=== PATIENT | male | born 1985 | race Caucasian/White ===

== ENCOUNTER 2024-07-25 10:57 | Inpatient (IN) | payer OTHER, SELFPAY ==
[2024-07-25] VITALS (19 sets, daily range): BP systolic 129–184; BP diastolic 83–129; PULSE 74–113; RESP 15–28; TEMP 36.7–36.8; O2SAT 98–100; BMI 29.9; BMI 30.4
[2024-07-25 11:40] LABS: Bedside Glucose 468 mg/dL (74-106)
--- NOTE | 2024-07-25 11:45 | RAD_ITS ---
PROCEDURE: CHEST PA AND LATERAL REASON FOR EXAM: Shortness of breath. Heart racing. Weight loss. Heartburn. TECHNIQUE: Frontal and lateral views of the chest. COMPARISON: None. FINDINGS: The heart size is normal. The mediastinal contour is unremarkable. No acute consolidation, pleural effusion or pneumothorax. The bones are unremarkable. RAD/Chest PA and Lateral IMPRESSION: No acute consolidation, pleural effusion or pneumothorax. Reading Location: [id number]
--- NOTE | 2024-07-25 11:45 | EKG12_ITS ---
Test Reason : CP Blood Pressure : */* mmHG Vent. Rate : 110 BPM Atrial Rate : 110 BPM P-R Int : 126 ms QRS Dur : 78 ms QT Int : 354 ms P-R-T Axes : 74 10 66 degrees QTcB Int : 479 ms Sinus tachycardia Otherwise normal ECG Confirmed by Johnny Xie ([id number]), technical editor ARNOLDO ARMSTRONG ([id number]) on 07/26/2024 9:33:01 AM Referred By: TB/TA Confirmed By: Johnny Xie
--- NOTE | 2024-07-25 11:49 | EX.ED.DYSGE1 ---
HPI History of Present Illness Chief Complaint: Shortness of Breath Narrative Narrative: Patient is a 39-year-old male with no known significant past medical history who presented to the emergency department chief complaint of not feeling well. Patient states that about a month ago he went to put on a pair of pants and noted that they seem to be not fitting him he states he did use a belt. He states that his symptoms progressively worsened and states that he has had about a 20 pound weight loss he states that he drinks about a gallon of water a day but notes that he is constantly moving around during work on his feet therefore he states that they normally do strength as much by water. He states he does urinate frequently. Patient denies any recent sick illnesses. He states that he did vomit yesterday secondary to acid reflux symptoms. PFSH PFSH Allergy/AdvReac Type Severity Reaction Status Date / Time No Known Allergies Allergy Verified 07/25/24 11:56 Social History Smoking Status: Current every day smoker tobacco type: e-cigarettes ROS ROS ED ROS Narrative Constitutional: Denies fevers, chills, headaches, lightness, dizziness Eyes: Denies change in vision double vision blurry vision Cardiovascular: Complaint of chest pain yesterday and states that this heartburn denies palpitations Respiratory: Denies coughing wheezing shortness of breath Abdomen: Denies abdominal pain nausea vomit diarrhea : Complains urinary symptoms as noted above Neurological: Denies numbness, weakness, tingling Musculoskeletal: Denies back pain Skin: Denies rashes or lesions EXAM Physical Exam Narrative Exam Narrative: General: Patient lying in bed rest comfortably did not appear to be in acute distress Head: Atraumatic, normocephalic Eyes: PERRL bilaterally, EOMI bilaterally, no conjunctival injection noted Neck: Soft, supple, trachea midline Cardiovascular: Regular rate and rhythm no murmurs gallops rubs noted Respiratory: Clear to auscultation bilaterally no rales rhonchi or wheezes noted Abdomen: Soft, nondistended, nontender to palpation, bowel sounds present x 4 extremities: +5/5 strength noted in the bilateral upper and lower extremities, radial pulses +2/4 in the bilateral extremities, no pedal edema no exam Neurological: Patient follow commands and that he was at [facility] years 2024 Skin: Warm, dry, intact no rashes or lesions noted Const Vital Signs: 07/25/24 10:59 07/25/24 11:30 07/25/24 11:59 Temperature 98.2 F Temperature Source Temporal Pulse Rate 113 H 85 Respiratory Rate 16 Respiratory Effort Normal Respiratory Pattern Tachypnea Blood Pressure 169/117 H 167/102 H Blood Pressure Mean 134 123 Pulse Ox 100 100 Oxygen Delivery Method Room Air Room Air 07/25/24 12:00 07/25/24 13:00 07/25/24 14:00 Temperature Temperature Source Pulse Rate 84 84 89 Respiratory Rate 20 H 16 Respiratory Effort Respiratory Pattern Blood Pressure 167/102 H 184/129 H 180/92 H Blood Pressure Mean 123 147 121 Pulse Ox 100 100 98 Oxygen Delivery Method Room Air Room Air 07/25/24 14:00 07/25/24 15:00 Temperature Temperature Source Pulse Rate 80 77 Respiratory Rate 26 H 26 H Respiratory Effort Respiratory Pattern Blood Pressure 180/92 H 147/112 H Blood Pressure Mean 121 123 Pulse Ox 98 100 Oxygen Delivery Method Room Air MDM MDM MDM Narrative Medical decision making narrative: Patient is a 39-year-old male who presented to the emerged part with chief complaint weight loss and not feeling well. On the differential diagnose includes mild to upper respiratory effect secondary viral etiology, pneumonia, ACS, hyperthyroidism. Once workup is obtained reviewed he will be reevaluated. Patient be given IV fluids. Upon arrival here his blood glucose was noted to be elevated to 468 he has no history of diabetes. Patient CBC significant leukocytosis of 15,000, , platelet count noted to be 396. Patient's venous blood gas showed a pH 7.02,, bicarb of 6, sodium was 128 indicating hyponatremia, potassium is normal 4.2,, dioxide 7.2, creatinine elevated 1.7 indicating acute kidney injury. Patient AST and ALT are 22 and 17 respectively, troponin was normal at 11, EKG reviewed and independently interpreted myself showed sinus tachycardia with a rate of 110 bpm. Patient's TSH normal at 2.92, free T4 and T3 were 1 and 1.6 respectively. Patient urinalysis showed no evidence of infection however there 150 ketones. Patient had a large amount of acetone. Patient chest x-ray reviewed by myself by radiology showed no acute consolidation pleural effusion or pneumothorax patient CT ab pelvis with IV contrast pending. Patient was given subcutaneous insulin, Followed by insulin drip, IV fluids. Patient case will be discussed with hospitalist for admission Discussed case with hospitalist Dr. Early who accept patient for admission to the intensive care unit. Patient notified as well as family was bedside all course concerns answered. Lab Data Labs: Laboratory Results - last 24 hr 07/25/24 07/25/24 07/25/24 11:05 11:19 11:52 WBC 15.8 H RBC 5.05 Hgb 15.8 Hct 47.8 MCV 94.7 H MCH 31.3 MCHC 33.1 RDW Std Deviation 45.8 H RDW Coeff of Kelle 13.3 Plt Count 396 MPV 11.0 Immature Gran % (Auto) 0.400 Neut % (Auto) 70.4 H Lymph % (Auto) 10.6 L [place] % (Auto) 8.9 Eos % (Auto) 9.4 H Baso % (Auto) 0.3 Absolute Neuts (auto) 11.2 H Absolute Lymphs (auto) 1.67 Nucleated RBC % 0 Sodium 128 L Potassium 4.2 Chloride Direct 94 L Carbon Dioxide 7.2 L* Anion Gap 27 H BUN 15 Creatinine 1.7 H Estim Creat Clear Calc 72.92 Est GFR (MDRD) Non-Af 53 L BUN/Creatinine Ratio 9.2 L Glucose 416 H Hemoglobin A1c 13.3 Calcium 10.0 Total Bilirubin 0.44 AST 22 ALT 17 Alkaline Phosphatase 96 Troponin T High Sens 10 Troponin T Hi Sens 2 Hr Troponin T Hi Sens 2Hr Delta Total Protein 7.9 Albumin 4.8 Globulin 3.1 Albumin/Globulin Ratio 1.5 Lipase 83 H TSH 2.920 Free T4 1.00 Free T3 pg/dL 1.6 L Urine Color Urine Clarity Urine pH Ur Specific [place] Urine Protein Urine Glucose (UA) Urine Ketones Urine Occult Blood Urine Nitrite Urine Bilirubin Urine Urobilinogen Ur Leukocyte Esterase Urine RBC Urine WBC Ur Squamous Epith Cells Urine Bacteria Fine Granular Casts Coarse Granular Casts Urine Mucus Acetone Level LARGE H POC Glucose 468 H* 07/25/24 07/25/24 07/25/24 13:40 14:00 14:50 WBC RBC Hgb Hct MCV MCH MCHC RDW Std Deviation RDW Coeff of Kelle Plt Count MPV Immature Gran % (Auto) Neut % (Auto) Lymph % (Auto) Starr % (Auto) Eos % (Auto) Baso % (Auto) Absolute Neuts (auto) Absolute Lymphs (auto) Nucleated RBC % Sodium Potassium Chloride Direct Carbon Dioxide Anion Gap BUN Creatinine Estim Creat Clear Calc Est GFR (MDRD) Non-Af BUN/Creatinine Ratio Glucose Hemoglobin A1c Calcium Total Bilirubin AST ALT Alkaline Phosphatase Troponin T High Sens Troponin T Hi Sens 2 Hr 11 Troponin T Hi Sens 2Hr Delta 2 Total Protein Albumin Globulin Albumin/Globulin Ratio Lipase TSH Free T4 Free T3 pg/dL Urine Color Straw Urine Clarity Clear Urine pH 6.0 Ur Specific [place] 1.020 Urine Protein 100 H Urine Glucose (UA) 1000 H Urine Ketones 150 A* Urine Occult Blood 150 H Urine Nitrite Negative Urine Bilirubin Negative Urine Urobilinogen Normal Ur Leukocyte Esterase Negative Urine RBC 0-5 SEEN Urine WBC 0-5 SEEN Ur Squamous Epith Cells 0-5 SEEN Urine Bacteria 0 SEEN Fine Granular Casts 0-5 SEEN Coarse Granular Casts 10-25 SEEN Urine Mucus 1+ Acetone Level POC Glucose 324 H ABG Data ABG results: ABG 07/25/24 12:48 Specimen Type ALONZO Sample Site Not entered VBG pH 7.02 L* VBG pO2 34 VBG HCO3 6 L VBG Total CO2 7 L VBG O2 Sat (Calc) 42 L VBG Base Excess -25 L POC Mix VBG pCO2 Pt Tmp 24.5 L O2 Delivery Device Not entered Crit Call To/Read Back Yes Blood Gas Notified Whom Dr Hussein Blood Gas Notified Time 12:51:03 Radiography Diagnostic Testing: Clinical Impression(s) from Imaging Studies Chest X-Ray 07/25/24 11:45 IMPRESSION: No acute consolidation, pleural effusion or pneumothorax. Reading Location: [facility] Discharge Plan Triage Chief Complaint: Shortness of Breath ED Provider: Frank Hussein Dx/Rx/DC Orders Clinical Impression: Diabetes mellitus, new onset, Metabolic acidosis, Abnormal weight loss Primary Care Provider: Care Physician,No Primary Referrals: NOT,DEFINED [Non-Staff] - Print Language: Trinidadian Disposition Disposition: [facility]
[2024-07-25] MEDS: 0.9% Normal Saline (1000mL) 1,000 ML 999 ML IV ×3 (11:52→17:12)
[2024-07-25 12:02] LABS: Absolute Lymphocyte Count 1.67 X10^3/uL (0.83-4.51); Absolute Neutrophil Count 11.2 X10^3/uL (2.0-7.7); Basophil# 0.05 X10^3/uL; Basophil% 0.3 % (0-1); Eosinophil# 1.48 X10^3/uL; Eosinophils% 9.4 % (0-5); Hematocrit 47.8 % (40-54); Hemoglobin 15.8 g/dL (13.0-16.5); Lymphocyte # 1.67 X10^3/ul (0.83-4.51); Lymphocyte % 10.6 % (19-41); Mean Corp Hgb Conc 33.1 g/dL (32-36); Mean Corpuscular Hgb 31.3 pg (27.0-32.0); Mean Corpuscular Volume 94.7 fL (80-94); Monocyte# 1.41 X10^3/uL; Monocyte% 8.9 % (0-10); NRBC Flagged by Analyzer 0 % (0-5); Neutrophil # 11.15 X10^3/uL (2.7-7.7); Neutrophil % 70.4 % (47-70); POSITIVE MORPHOLOGY YES; Platelet Count 396 K/mm3 (150-450); RBC Distribution Width CV 13.3 % (11.6-14.6); RBC Distribution Width SD 45.8 fl (35.1-43.9); Red Blood Count 5.05 M/mm3 (4.6-6.2); White Blood Count 15.8 K/mm3 (4.4-11.0)
[2024-07-25 12:37] LABS: Hemoglobin A1c 13.3 % (<=5.6)
[2024-07-25 12:42] LABS: Differential Indicated SCAN CRITERIA MET
[2024-07-25 12:44] LABS: ALB/GLOB Ratio 1.5 RATIO (0.9-2.4); AST(SGOT) 22 U/L (<=37); Alanine Aminotransfer ALT/SGPT 17 U/L (<=46); Albumin, Serum 4.8 g/dL (3.5-5.0); Alkaline Phosphatase 96 U/L (40-129); Anion Gap 27 (5-15); BUN 15 mg/dL (4-19); BUN/Creat Ratio 9.2 RATIO (10-20); Carbon Dioxide 7.2 mmol/L (22.0-29.0); Chloride 94 mmol/L (96-108); Creatinine, Serum 1.7 mg/dL (0.8-1.3); EST Glomerular Filtration Rate 53 (>60); Estimated Creatinine Clearance 72.92 ml/min; Globulin 3.1 g/dL (2.2-4.2); Glucose 416 mg/dL (70-99); Lipase 83 U/L (13-75); Potassium 4.2 mmol/L (3.3-5.1); Protein, Total 7.9 g/dL (5.9-8.4); Sodium Level 128 mmol/L (133-145); Total Bilirubin 0.44 mg/dL (0.00-1.30)
--- NOTE | 2024-07-25 12:45 | ED.RN ---
bicarb 7.2. dr vang
[2024-07-25 12:53] LABS: Blood Gas Specimen Type VEN; O2 Delivery Device Not entered; SITE Not entered; VBG BASE EXCESS -25 mmol/L (-1.0-3.5); VBG Bicarbonate 6 mmol/L (22-26); VBG PO2 34 mmHg (25-40); VBG SO2 42 % (50-70); VBG TCO2 7 mmol/L (23-33); VBG pCO2 24.5 mmHg (41-51); VBG pH 7.02 (7.32-7.42)
[2024-07-25 13:06] LABS: Free T3 1.6 pg/mL (2.18-3.98); Troponin T High Sensitivity 10 ng/L (<=22)
--- NOTE | 2024-07-25 13:15 | CT_ITS ---
PROCEDURE: CT ABDOMEN AND PELVIS WITH INTRAVENOUS CONTRAST REASON FOR EXAM: NEW ONSET DIABETIC. SHORTNESS OF BREATH. 20 LB WEIGHT LOSS TECHNIQUE: Contiguous axial scans of 3.75 mm slice thicknesses. Sagittal and coronal reconstruction images were obtained. One or more dose reduction techniques were used (e.g., automated exposure control, adjustment of mA and/or kv according to patient size, use of iterative reconstruction technique). IV CONTRAST: Isovue-300, 100 mL. COMPARISON: No relevant prior. FINDINGS: Lung bases: Clear Liver: Normal in size. Small subcentimeter hypodensities are scattered throughout the liver. Gallbladder: Unremarkable. Spleen: Unremarkable. A small splenule on axial image 32. Pancreas: Unremarkable. Adrenals: Unremarkable. Kidneys: Unremarkable. Bladder: Marked distention. Reproductive Organs: Unremarkable. Bowel: Unremarkable. Appendix: Normal. Lymph nodes: No suspicious lymph node enlargement. Vasculature: Major vascular structures are unremarkable. Peritoneum / Retroperitoneum: No ascites. No free air. Bones: Unremarkable. CT/Abdomen/Pelvis W IV Cont ONLY IMPRESSION: 1. Small subcentimeter hypodensities scattered throughout the liver, most like ly cysts or hemangiomas. 2. Markedly distended urinary bladder. Reading Location: [place] [id number]
[2024-07-25 13:46] LABS: Bacteria 0 SEEN /hpf (None Seen)
[2024-07-25 13:49] LABS: Color, Urine Straw (Yellow); Glucose, Dipstick 1000 mg/dl (Normal); Leukocyte Esterase-Dipstick Negative /ul (Negative); Nitrite-Dipstick Negative (Negative); Occult Blood-Urine 150 /ul (Negative); Protein-Dipstick 100 mg/dl (Negative); Urine Bilirubin Dipstick Negative (Negative); Urine Clarity Clear (Clear); Urine Urobilinogen Normal (Normal)
[2024-07-25 13:53] LABS: Ketone-Dipstick 150 mg/dl (Negative)
[2024-07-25] MEDS: Insulin Lispro 100 UNIT in 0.9% Normal Saline (100mL Bag) 99 ML 10 UNIT CONT INF (13:53)
[2024-07-25] MEDS: Insulin Lispro 100 UNIT/ML INSULN.PEN 15 UNIT SC (13:53)
[2024-07-25 14:09] LABS: Mucous, Urine 1+ /hpf (<or=2+); Red Blood Cells-Urine 0-5 SEEN /hpf (0-5); Squamous Epithelial Cells - UA 0-5 SEEN /hpf (0-5); White Blood Cells 0-5 SEEN /hpf (0-5)
[2024-07-25 14:10] LABS: Coarse Granular Cast 10-25 SEEN /lpf (0-5 /lpf); Fine Granular Cast- Urine 0-5 SEEN /lpf (0-5)
[2024-07-25 14:38] LABS: TROPONIN VARIANCE 2 HR 2; Troponin T High Sens 2 HR 11 ng/L (<=22)
[2024-07-25 15:09] LABS: Bedside Glucose 324 mg/dL (74-106)
--- NOTE | 2024-07-25 16:08 | HP.PCM.HOS_ITS ---
HPI - General General Date of Admission: 07/25/24 Date of Service: 07/25/24 Chief Complaint: fatigue. HPI Narrative STELLA SIMPSON, is a 39 M who presents with progressive fatigue and weight loss. The patient is feeling dehydrated. 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 Patient was found to be in DKA with a venous blood gas with a pH of 7.02 and a sodium 128, carbon dioxide of 7.2 and creatinine 1.7. Patient has no prior history of diabetes. Patient received IV fluids as well as insulin in the emergency room. Glucose went from 468-324. [facility] Allergy/AdvReac Type Severity Reaction Status Date / Time No Known Allergies Allergy Verified 07/25/24 11:56 Family History (Updated 07/25/24 @ 16:[address] Jeromy Early DO) Father Diabetes Social History Smoking Status: Current every day smoker tobacco type: e-cigarettes ROS ROS Narrative Positive nausea no vomiting. Does not note polydipsia as he states that he normally drinks a lot of fluid at the restaurant and denies polyuria but does feel dehydrated. All review of systems were negative except as mentioned above in the history of present illness and the other review of systems. Vital Signs Vital Signs Vital Signs: 07/25/24 10:59 07/25/24 11:30 07/25/24 11:59 Temperature 36.8 C Temperature Source Temporal Pulse Rate 113 H 85 Respiratory Rate 16 Respiratory Effort Normal Respiratory Pattern Tachypnea Blood Pressure 169/117 H 167/102 H Blood Pressure Mean 134 123 Pulse Ox 100 100 Oxygen Delivery Method Room Air Room Air 07/25/24 12:00 07/25/24 13:00 07/25/24 14:00 Temperature Temperature Source Pulse Rate 84 84 89 Respiratory Rate 20 H 16 Respiratory Effort Respiratory Pattern Blood Pressure 167/102 H 184/129 H 180/92 H Blood Pressure Mean 123 147 121 Pulse Ox 100 100 98 Oxygen Delivery Method Room Air Room Air 07/25/24 14:00 07/25/24 15:00 Temperature Temperature Source Pulse Rate 80 77 Respiratory Rate 26 H 26 H Respiratory Effort Respiratory Pattern Blood Pressure 180/92 H 147/112 H Blood Pressure Mean 121 123 Pulse Ox 98 100 Oxygen Delivery Method Room Air Weight Weight: 100.244 kg Body Mass Index (BMI) 29.9 Physical Exam Const alert and no apparent distress HEENT normocephalic, head/scalp atraumatic, hearing grossly normal bilaterally and moist oral mucous membranes Mouth: moist mucous membranes abnormal parched Eyes Eyes Narrative: No icterus. Neck no lymphadenopathy Resp normal respiratory effort, no retractions, no use of accessory muscles and clear to auscultation bilaterally Cardio regular rate, regular rhythm, S1 normal heart sound and S2 normal heart sound GI normal to inspection, nondistended, normoactive bowel sounds, soft to palpation, non-tender and non-distended Extremity normal to inspection and full ROM Neuro moves all extremities and no focal motor deficits Sensorium / Orientation: awake and alert Psych affect normal Results Lab / Micro Data Attestation: I reviewed the patient's lab results. 07/25/24 11:05 07/25/24 11:05 Labs: Laboratory Results - last 24 hr 07/25/24 11:05: WBC 15.8 H, RBC 5.05, Hgb 15.8, Hct 47.8, MCV 94.7 H, MCH 31.3, MCHC 33.1, RDW Std Deviation 45.8 H, RDW Coeff of Kelle 13.3, Plt Count 396, MPV 11.0, Immature Gran % (Auto) 0.400, Neut % (Auto) 70.4 H, Lymph % (Auto) 10.6 L, [place] % (Auto) 8.9, Eos % (Auto) 9.4 H, Baso % (Auto) 0.3, Absolute Neuts (auto) 11.2 H, Absolute Lymphs (auto) 1.67, Nucleated RBC % 0, Sodium 128 L, Potassium 4.2, Chloride Direct 94 L, Carbon Dioxide 7.2 L*, Anion Gap 27 H, BUN 15, C reatinine 1.7 H, Estim Creat Clear Calc 72.92, Est GFR (MDRD) Non-Af 53 L, B UN/Creatinine Ratio 9.2 L, Glucose 416 H, Hemoglobin A1c 13.3, Calcium 10.0, Total Bilirubin 0.44, AST 22, ALT 17, Alkaline Phosphatase 96, Troponin T High Sens 10, Total Protein 7.9, Albumin 4.8, Globulin 3.1, Albumin/Globulin Ratio 1.5, Lipase 83 H, TSH 2.920, Free T4 1.00, Free T3 pg/dL 1.6 L 07/25/24 11:19: POC Glucose 468 H* 07/25/24 11:52: Acetone Level LARGE H 07/25/24 13:40: Urine Color Straw, Urine Clarity Clear, Urine pH 6.0, Ur Specific [place] 1.020, Urine Protein 100 H, Urine Glucose (UA) 1000 H, Urine Ketones 150 A*, Urine Occult Blood 150 H, Urine Nitrite Negative, Urine Bilirubin Negative, Urine Urobilinogen Normal, Ur Leukocyte Esterase Negative, Urine RBC 0-5 SEEN, Urine WBC 0-5 SEEN, Ur Squamous Epith Cells 0-5 SEEN, Urine Bacteria 0 SEEN, Fine Granular Casts 0-5 SEEN, Coarse Granular Casts 10-25 SEEN, Urine Mucus 1+ 07/25/24 14:00: Troponin T Hi Sens 2 Hr 11, Troponin T Hi Sens 2Hr Delta 2 07/25/24 14:50: POC Glucose 324 H ABG Data ABG results: ABG 07/25/24 12:48 Specimen Type ALONZO Sample Site Not entered VBG pH 7.02 L* VBG pO2 34 VBG HCO3 6 L VBG Total CO2 7 L VBG O2 Sat (Calc) 42 L VBG Base Excess -25 L POC Mix VBG pCO2 Pt Tmp 24.5 L O2 Delivery Device Not entered Crit Call To/Read Back Yes Blood Gas Notified Whom Dr Hussein Blood Gas Notified Time 12:51:03 Imaging Radiology Impression Chest X-Ray 07/25/24 11:45 IMPRESSION: No acute consolidation, pleural effusion or pneumothorax. Reading Location: [id number] Abdomen/Pelvis CT 07/25/24 13:15 IMPRESSION: 1. Small subcentimeter hypodensities scattered throughout the liver, most likely cysts or hemangiomas. 2. Markedly distended urinary bladder. Reading Location: [place] [address] Assessment & Plan Assessment/Plan (1) DKA (diabetic ketoacidoses): PLAN: Unclear if patient is type I or type II Patient will be on insulin drip protocol. IV fluids. Told patient that he would likely be discharged with insulin. I strongly recommend they follow-up with endocrinology to further tease out whether or not he is a type I versus type II diabetic. Patient's father is a type II diabetic. I told the patient that I cannot determine if he is a type II at this point in time (2) EMILY (acute kidney injury): PLAN: Provide secondary to dehydration. Patient clinically looks dry. IV fluids and reevaluate. (3) Hyponatremia: PLAN: Likely pseudohyponatremia secondary to hyperglycemia. Monitor. PLAN: Plan VTE prophylaxis with enoxaparin. Charges/Coding Visit Charges Inpatient E&M: 87204 Init Hosp L3
[2024-07-25 16:42] LABS: Bedside Glucose 271 mg/dL (74-106)
[2024-07-25 17:42] LABS: Bedside Glucose 226 mg/dL (74-106)
[2024-07-25 18:08] LABS: Anion Gap 18 (5-15); BUN 15 mg/dL (4-19); BUN/Creat Ratio 10.7 RATIO (10-20); Calcium 9.4 mg/dL (7.6-11.0); Carbon Dioxide 10.8 mmol/L (22.0-29.0); Chloride 102 mmol/L (96-108); Creatinine, Serum 1.4 mg/dL (0.8-1.3); EST Glomerular Filtration Rate 65 (>60); Estimated Creatinine Clearance 89.23 ml/min; Glucose 214 mg/dL (70-99); Potassium 3.3 mmol/L (3.3-5.1); Sodium Level 131 mmol/L (133-145)
[2024-07-25] MEDS: 0.9% Normal Saline (1000mL) 1,000 ML 500 ML IV (18:16)
[2024-07-25 18:40] LABS: Bedside Glucose 182 mg/dL (74-106)
[2024-07-25] MEDS: Dext 5%-0.45% NS 1,000 ML 150 ML IV (19:30)
[2024-07-25 21:08] LABS: Anion Gap 16 (5-15); BUN 14 mg/dL (4-19); BUN/Creat Ratio 9.9 RATIO (10-20); Calcium 8.7 mg/dL (7.6-11.0); Carbon Dioxide 11.5 mmol/L (22.0-29.0); Chloride 106 mmol/L (96-108); Creatinine, Serum 1.4 mg/dL (0.8-1.3); EST Glomerular Filtration Rate 66 (>60); Estimated Creatinine Clearance 89.23 ml/min; Glucose 177 mg/dL (70-99); Sodium Level 133 mmol/L (133-145)
[2024-07-25 21:51] LABS: Phosphorus 1.9 mg/dL (2.7-4.5)
[2024-07-25] MEDS: Potassium Chloride 10mEq/100mL 10 MEQ/100 ML IV.SOLN. 100 MEQ IV BOLUS ×2 (22:14→23:14)
[2024-07-25] MEDS: 0.9% Saline Lock 10 ML Syringe IV (22:14)
[2024-07-26] VITALS (16 sets, daily range): BP systolic 133–161; BP diastolic 77–95; PULSE 69–89; RESP 16–28; TEMP 36.6–36.7; O2SAT 97–99
[2024-07-26] MEDS: Sodium Phosphate/Na Biphos 15 MMOL in 0.9% Normal Saline (250mL Bag) 250 ML 125 MMOL IV (00:06)
[2024-07-26 00:39] LABS: Anion Gap 13 (5-15); BUN 14 mg/dL (4-19); Calcium 8.8 mg/dL (7.6-11.0); Carbon Dioxide 11.8 mmol/L (22.0-29.0); Chloride 107 mmol/L (96-108); Creatinine, Serum 1.2 mg/dL (0.8-1.3); EST Glomerular Filtration Rate 77 (>60); Glucose 180 mg/dL (70-99); Potassium 3.1 mmol/L (3.3-5.1); Sodium Level 131 mmol/L (133-145)
[2024-07-26] MEDS: Dext 5%-0.45% NS 1,000 ML 150 ML IV (02:23)
[2024-07-26 02:29] LABS: Bedside Glucose 171 mg/dL (74-106)
[2024-07-26 02:29] LABS: Bedside Glucose 177 mg/dL (74-106)
[2024-07-26 02:29] LABS: Bedside Glucose 166 mg/dL (74-106)
[2024-07-26 02:29] LABS: Bedside Glucose 175 mg/dL (74-106)
[2024-07-26 05:13] LABS: Anion Gap 12 (5-15); BUN 14 mg/dL (4-19); BUN/Creat Ratio 12.1 RATIO (10-20); Calcium 8.8 mg/dL (7.6-11.0); Carbon Dioxide 12.5 mmol/L (22.0-29.0); Chloride 107 mmol/L (96-108); Creatinine, Serum 1.2 mg/dL (0.8-1.3); EST Glomerular Filtration Rate 83 (>60); Glucose 170 mg/dL (70-99); Potassium 2.7 mmol/L (3.3-5.1); Sodium Level 131 mmol/L (133-145)
[2024-07-26] MEDS: Potassium Chloride 10mEq/100mL 10 MEQ/100 ML IV.SOLN. 100 MEQ IV BOLUS ×4 (06:06→09:20)
[2024-07-26] MEDS: 0.9% Saline Lock 10 ML Syringe IV ×3 (06:08→16:39)
[2024-07-26] MEDS: Insulin Glargine-YFGN 100 UNIT/ML Pen 20 UNIT SC ×2 (06:46→21:06)
[2024-07-26 07:09] LABS: Bedside Glucose 162 mg/dL (74-106)
[2024-07-26 07:09] LABS: Bedside Glucose 170 mg/dL (74-106)
[2024-07-26 07:09] LABS: Bedside Glucose 180 mg/dL (74-106)
[2024-07-26 07:09] LABS: Bedside Glucose 149 mg/dL (74-106)
[2024-07-26 07:09] LABS: Bedside Glucose 157 mg/dL (74-106)
--- NOTE | 2024-07-26 07:45 | PN.HOSP_ITS ---
Reason for Visit Reason for Visit: Fatigue Subjective Subjective Patient states he overall is feeling much better today. We discussed DKA and type I and type 2 diabetes. He does have a family history of diabetes but no personal history of diabetes and has never been on any type of diabetic medication. We did discuss with the severity of his hyperglycemia that he would indeed require insulin at discharge and follow-up with endocrinology. Patient voiced understanding. Objective Data Objective Data Vital Signs: Vital Signs Temp Pulse Resp BP Pulse Ox O2 Del Method 97.8 F 77 25 H 146/81 H 99 Room Air 07/26/24 04:00 07/26/24 06:00 07/26/24 06:00 07/26/24 06:00 07/26/24 06:00 07/26/24 06:00 Oxygen Delivery Method Room Air Weight: 101.9 kg Body Mass Index (BMI) 30.4 Intake & Output: Intake and Output for Last 24 Hours 07/24/24 07/25/24 07/26/24 23:59 23:59 23:59 Intake Total 3764.18 / 3764.18 1493 / 1493 Balance 3764.18 / 3764.18 1493 / 1493 Lab / Micro Data 07/25/24 11:05 07/26/24 16:05 Labs: Laboratory Results - last 24 hr 07/25/24 11:05: WBC 15.8 H, RBC 5.05, Hgb 15.8, Hct 47.8, MCV 94.7 H, MCH 31.3, MCHC 33.1, RDW Std Deviation 45.8 H, RDW Coeff of Kelle 13.3, Plt Count 396, MPV 11.0, Immature Gran % (Auto) 0.400, Neut % (Auto) 70.4 H, Lymph % (Auto) 10.6 L, [place] % (Auto) 8.9, Eos % (Auto) 9.4 H, Baso % (Auto) 0.3, Absolute Neuts (auto) 11.2 H, Absolute Lymphs (auto) 1.67, Nucleated RBC % 0, Sodium 128 L, Potassium 4.2, Chloride Direct 94 L, Carbon Dioxide 7.2 L*, Anion Gap 27 H, BUN 15, C reatinine 1.7 H, Estim Creat Clear Calc 72.92, Est GFR (MDRD) Non-Af 53 L, B UN/Creatinine Ratio 9.2 L, Glucose 416 H, Hemoglobin A1c 13.3, Calcium 10.0, Total Bilirubin 0.44, AST 22, ALT 17, Alkaline Phosphatase 96, Troponin T High Sens 10, Total Protein 7.9, Albumin 4.8, Globulin 3.1, Albumin/Globulin Ratio 1.5, Lipase 83 H, TSH 2.920, Free T4 1.00, Free T3 pg/dL 1.6 L 07/25/24 11:19: POC Glucose 468 H* 07/25/24 11:52: Acetone Level LARGE H 07/25/24 13:40: Urine Color Straw, Urine Clarity Clear, Urine pH 6.0, Ur Specific [place] 1.020, Urine Protein 100 H, Urine Glucose (UA) 1000 H, Urine Ketones 150 A*, Urine Occult Blood 150 H, Urine Nitrite Negative, Urine Bilirubin Negative, Urine Urobilinogen Normal, Ur Leukocyte Esterase Negative, Urine RBC 0-5 SEEN, Urine WBC 0-5 SEEN, Ur Squamous Epith Cells 0-5 SEEN, Urine Bacteria 0 SEEN, Fine Granular Casts 0-5 SEEN, Coarse Granular Casts 10-25 SEEN, Urine Mucus 1+ 07/25/24 14:00: Troponin T Hi Sens 2 Hr 11, Troponin T Hi Sens 2Hr Delta 2 07/25/24 14:50: POC Glucose 324 H 07/25/24 16:20: POC Glucose 271 H 07/25/24 17:15: Sodium 131 L, Potassium 3.3, Chloride Direct 102, Carbon Dioxide 10.8 L, Anion Gap 18 H, BUN 15, Creatinine 1.4 H, Estim Creat Clear Calc 89.23, Est GFR (MDRD) Non-Af 65, BUN/Creatinine Ratio 10.7, Glucose 214 H, Calcium 9.4 07/25/24 17:23: POC Glucose 226 H 07/25/24 18:18: POC Glucose 182 H 07/25/24 20:05: POC Glucose 166 H 07/25/24 20:11: Sodium 133, Potassium 3.0 L, Chloride Direct 106, Carbon Dioxide 11.5 L, Anion Gap 16 H, BUN 14, Creatinine 1.4 H, Estim Creat Clear Calc 89.23, Est GFR (MDRD) Non-Af 66, BUN/Creatinine Ratio 9.9 L, Glucose 177 H, Calcium 8.7, Phosphorus 1.9 L 07/25/24 21:01: POC Glucose 177 H 07/25/24 22:08: POC Glucose 175 H 07/25/24 22:59: POC Glucose 171 H 07/26/24 00:04: Sodium 131 L, Potassium 3.1 L, Chloride Direct 107, Carbon Dioxide 11.8 L, Anion Gap 13, BUN 14, Creatinine 1.2, Estim Creat Clear Calc 104.10, Est GFR (MDRD) Non-Af 77, BUN/Creatinine Ratio 11.0, Glucose 180 H, Calcium 8.8 07/26/24 01:02: POC Glucose 162 H 07/26/24 03:03: POC Glucose 180 H 07/26/24 04:08: POC Glucose 170 H 07/26/24 04:11: Sodium 131 L, Potassium 2.7 L*, Chloride Direct 107, Carbon Dioxide 12.5 L, Anion Gap 12, BUN 14, Creatinine 1.2, Estim Creat Clear Calc 104.10, Est GFR (MDRD) Non-Af 83, BUN/Creatinine Ratio 12.1, Glucose 170 H, Calcium 8.8 07/26/24 05:24: Acetone Level NEGATIVE 07/26/24 06:10: POC Glucose 157 H 07/26/24 06:51: POC Glucose 149 H ABG Data ABG results: ABG 07/25/24 12:48 Specimen Type ALONZO Sample Site Not entered VBG pH 7.02 L* VBG pO2 34 VBG HCO3 6 L VBG Total CO2 7 L VBG O2 Sat (Calc) 42 L VBG Base Excess -25 L POC Mix VBG pCO2 Pt Tmp 24.5 L O2 Delivery Device Not entered Crit Call To/Read Back Yes Blood Gas Notified Whom Dr Hussein Blood Gas Notified Time 12:51:03 Radiography Diagnostic Testing: Radiology Impression Chest X-Ray 07/25/24 11:45 IMPRESSION: No acute consolidation, pleural effusion or pneumothorax. Reading Location: [id number] Abdomen/Pelvis CT 07/25/24 13:15 IMPRESSION: 1. Small subcentimeter hypodensities scattered throughout the liver, most likely cysts or hemangiomas. 2. Markedly distended urinary bladder. Reading Location: [place] [address] Physical Exam Const alert, oriented x3, no apparent distress and well nourished; Negative for average body habitus Constitutional Narrative: Obese, middle-aged, white male, sitting up in bed, appears comfortable, nontoxic, watching television HEENT head/scalp atraumatic and moist oral mucous membranes HEENT Narrative: Mallampati 2-3, no thrush Head and Scalp: normocephalic Resp normal respiratory effort, no retractions, no use of accessory muscles and clear to auscultation bilaterally Auscultation: Negative for rales, rhonchi or wheezes Cardio regular rate, regular rhythm, S1 normal heart sound, S2 normal heart sound, no murmurs, no rub, no gallops and no clicks GI normal to inspection, nondistended, normoactive bowel sounds, soft to palpation and non-tender Extremity no clubbing, cyanosis or edema Neuro oriented x3, moves all extremities and no focal motor deficits Speech: speech normal Psych affect normal Psych Narrative: Pleasant, interacts appropriately Assessment & Plan Assessment/Plan (1) Hyponatremia: (2) EMILY (acute kidney injury): (3) DKA (diabetic ketoacidoses): (4) Diabetes mellitus, new onset: (5) HTN (hypertension): (6) Hypokalemia: (7) Dehydration: PLAN: Plan DKA -Resolved EMILY -Baseline serum creatinine is 1.2 -Serum creatinine on presentation was 1.7 -Improved with hydration -Repeat lab in a.m. Hypokalemia -Will give 60 mg once a p.o. potassium replacement and recheck lab New onset DM -Unclear if type I or type II -Would be odd for type II to present in DKA -Will need further workup by endocrinology to determine type -Refer to Dr. Felix from endocrinology at discharge -Start subcu insulin and based on blood sugars will uptitrate to 40 units daily -Increase prandial insulin to 12 units 3 times daily -Continue SSI -Diabetic teaching from dietitian -Insulin teaching from nursing Hypertension -Blood pressure has consistently been elevated -Lisinopril 10 mg added but blood pressure still elevated so we will uptitrate the 30 mg Hyponatremia -Some of this is pseudohyponatremia -Repeat lab in a.m. Obesity -BMI 30.4 -Recommend weight loss -If and complicates treatment, prognosis, outcomes DVT prophylaxis -Continue enoxaparin subcu 40 mg daily CODE STATUS Full code Charges/Coding Visit Charges Inpatient E&M: 53081 Subs Hosp L2
[2024-07-26] MEDS: Potassium Chloride Oral Tablet 20 MEQ 60 MEQ PO (07:56)
[2024-07-26] MEDS: Insulin Lispro 100 UNIT/ML INSULN.PEN 8 UNIT SC ×2 (08:22→11:58)
[2024-07-26] MEDS: Insulin Lispro 100 UNIT/ML INSULN.PEN SC ×4 (08:22→21:04)
[2024-07-26 08:36] LABS: Bedside Glucose 164 mg/dL (74-106)
[2024-07-26 09:20] LABS: BUN 14 mg/dL (4-19); BUN/Creat Ratio 11.8 RATIO (10-20); Creatinine, Serum 1.2 mg/dL (0.8-1.3); EST Glomerular Filtration Rate 84 (>60); Glucose 141 mg/dL (70-99)
[2024-07-26 09:56] LABS: Anion Gap 11 (5-15); Carbon Dioxide 13.9 mmol/L (22.0-29.0); Chloride 107 mmol/L (96-108); Potassium 2.8 mmol/L (3.3-5.1); Sodium Level 132 mmol/L (133-145)
[2024-07-26] MEDS: Lisinopril 10 MG Tablet PO (10:12)
[2024-07-26] MEDS: Enoxaparin 40 MG/0.4 ML Syringe SC (10:13)
[2024-07-26] MEDS: Lactated Ringers 1,000 ML 200 ML IV (10:19)
[2024-07-26] MEDS: Polyethylene Glycol 3350 17 GM PACKET PO (10:23)
--- NOTE | 2024-07-26 11:00 | CASEMGMT ---
Addendum entered by Renetta Jay 07/26/24 13:24: Discussed CCN, pt declines referral at this time, stating he works 6 days/week, often 14-hr days, and is rarely home. Original Note: RN CM PRESS OPERATOR CM?to room to meet with patient for initial transition planning/care coordination assessment. RN CM?introduced self and role at [facility]. Pt voices understanding and consents to assessment?at this time. Pt resting in bed in no distress at this time. @ bedside. Pt is A/O at this time and answers all questions appropriately. Care providers, pharmacy, and demographics verified/updated at this time. Strata:?1 PCP: No PCP. Provided w/local PCP directory. Recommended to get coleman w/PCP to get established as soon as possible. Specialists: none Preferred [facility]acy: [facility] Insurance: MMO Prescription Benefit: Pt is not sure Living Will/HPOA: Pt does not currently have LW/HCPOA. Pt made aware if interested in completed, these can be done w/SW while in the hospital, if SW is available. Also made aware that he can contact SW as an out-pt and make appt in the future if he decides he would like to talk with someone about this or would like to utilize [facility] social work for advanced directive completion. LNOK: Mini Living Arrangements: Lives w/. Independent. 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 Transportation:?Pt states drives self and states no transportation concerns at this time. also drives. DME: Denies using any DME. Does not have a glucometer. Made aware a script will be provided @ discharge and can take to any pharmacy of choice. HHC/SNF: No hx. No needs identified. Pt wishes to return home and states has no concerns with going home at time of discharge. CM?to follow for any further discharge planning/needs. Pt and voice no further concerns/needs at this time. PLAN: Home. Pt to be provided w/script for glucometer. Nursing to educate on DM and insulin admin. Ivan DOSS RN, CM
[2024-07-26 12:08] LABS: Bedside Glucose 312 mg/dL (74-106)
[2024-07-26 16:36] LABS: Anion Gap 10 (5-15); BUN 15 mg/dL (4-19); BUN/Creat Ratio 11.4 RATIO (10-20); Calcium 9.1 mg/dL (7.6-11.0); Carbon Dioxide 15.4 mmol/L (22.0-29.0); Chloride 104 mmol/L (96-108); Creatinine, Serum 1.3 mg/dL (0.8-1.3); EST Glomerular Filtration Rate 73 (>60); Estimated Creatinine Clearance 96.09 ml/min; Glucose 437 mg/dL (70-99); Potassium 3.4 mmol/L (3.3-5.1); Sodium Level 130 mmol/L (133-145)
[2024-07-26] MEDS: Insulin Lispro 100 UNIT/ML INSULN.PEN 12 UNIT SC (16:39)
[2024-07-26 16:44] LABS: Bedside Glucose 361 mg/dL (74-106)
[2024-07-26 21:35] LABS: Bedside Glucose 319 mg/dL (74-106)
[2024-07-27 04:55] VITALS: BP 139/86; PULSE 65; RESP 18; TEMP 36.6; O2SAT 100
[2024-07-27 05:16] VITALS: BMI 30.5
[2024-07-27 05:32] LABS: ALB/GLOB Ratio 1.5 RATIO (0.9-2.4); AST(SGOT) 14 U/L (<=37); Alanine Aminotransfer ALT/SGPT 13 U/L (<=46); Albumin, Serum 3.4 g/dL (3.5-5.0); Alkaline Phosphatase 61 U/L (40-129); Anion Gap 13 (5-15); BUN 11 mg/dL (4-19); BUN/Creat Ratio 10.6 RATIO (10-20); Calcium 9.1 mg/dL (7.6-11.0); Carbon Dioxide 17.1 mmol/L (22.0-29.0); Chloride 104 mmol/L (96-108); Creatinine, Serum 1.02 mg/dL (0.70-1.20); EST Glomerular Filtration Rate 97 (>60); Estimated Creatinine Clearance 122.75 ml/min; Globulin 2.2 g/dL (2.2-4.2); Glucose 298 mg/dL (70-99); Magnesium 2.1 mg/dL (1.5-2.2); Potassium 2.8 mmol/L (3.3-5.1); Protein, Total 5.6 g/dL (5.9-8.4); Sodium Level 134 mmol/L (133-145); Total Bilirubin 0.39 mg/dL (0.00-1.30)
[2024-07-27] MEDS: Potassium Chloride Oral Tablet 20 MEQ 60 MEQ PO (06:58)
[2024-07-27 08:19] LABS: Hematocrit 33.3 % (40-54); Hemoglobin 11.6 g/dL (13.0-16.5); Mean Corp Hgb Conc 34.8 g/dL (32-36); Mean Corpuscular Hgb 31.2 pg (27.0-32.0); Mean Corpuscular Volume 89.5 fL (80-94); Platelet Count 187 K/mm3 (150-450); RBC Distribution Width CV 13.7 % (11.6-14.6); RBC Distribution Width SD 44.3 fl (35.1-43.9); Red Blood Count 3.72 M/mm3 (4.6-6.2); White Blood Count 4.2 K/mm3 (4.4-11.0)
[2024-07-27 08:26] LABS: Bedside Glucose 271 mg/dL (74-106)
[2024-07-27 08:31] LABS: Scan Indicated on CBC? Y/N NO
[2024-07-27] MEDS: Insulin Glargine-YFGN 100 UNIT/ML Pen 50 UNIT SC (08:37)
[2024-07-27] MEDS: Insulin Lispro 100 UNIT/ML INSULN.PEN 15 UNIT SC ×2 (08:37→11:51)
[2024-07-27] MEDS: Insulin Lispro 100 UNIT/ML INSULN.PEN SC ×2 (08:38→11:51)
[2024-07-27] MEDS: Lisinopril 10 MG Tablet 30 MG PO (08:40)
[2024-07-27] MEDS: 0.9% Saline Lock 10 ML Syringe IV (08:40)
[2024-07-27 08:45] VITALS: BP 146/91; PULSE 73; RESP 16; TEMP 36.8; O2SAT 99
[2024-07-27] MEDS: Polyethylene Glycol 3350 17 GM PACKET PO (08:50)
--- NOTE | 2024-07-27 10:23 | CASEMGMT ---
Addendum entered by Renetta Jay 07/27/24 14:51: Pt and request that hospital bill be sent to the following mailing address: [id number] [place] [address] Call placed to [facility] and spoke w/Cassy. She states she will update guarantor info. Addendum entered by Renetta Jay 07/27/24 11:58: Dr Fairbanks made aware pt is inquiring about Rx for K+. She states does not want to dc him on K+ at this time, stating it can be dangerous, especially with the lisinopril. Pt made aware. Addendum entered by Renetta Jay 07/27/24 11:51: Discharge order is in. Medications have been e-scribed to [facility] pharmacy. Call to pharmacy for singh check: insulin glargine: $87.70 insulin lispra: $35 lisinopril: $4 Pen needles: Pt's insurance prefers BD brand, which would be $62.93 for box of 100. However, [facility] has OTC Reli-on pen needles for $9/box. Pt made aware and states this is affordable. He prefers to purchase the OTC Reli-on pen needles, pharmacy is aware and states will get them ready. Pt and aware to get established w/a PCP as soon as possible. Also made aware of Chitra Mcintyre as being a possible option if unable to find a PCP that is accepting new pt's or unable to get an appt soon. They were provided w/Chitra's contact # yesterday. JAYLIN NELSON reinforced w/pt today the importance of getting PCP appt soon. Pt inquiring if he will need Rx for K+ @ dc, as he has been low while being in the hospital. Original Note: JAYLIN NELSON NOTE: Script for glucometer obtained and provided to pt. He is aware he can take to any location of choice. Questions answered. Nursing has been doing DM and insulin administration teaching. JAYLIN Bucio, states will be doing on-going teaching today with pt and also with today when she comes in. Pt able to administer his own insulin this AM. Ivan DOSS RN, CM
--- NOTE | 2024-07-27 10:37 | PCM.DC.SUM ---
Providers Date of Admission: 07/25/24 Date of Discharge: 07/27/24 Primary Care Physician: No Primary Care Phys Reason For Visit: NEW ONSET DIABETES Diagnosis Discharge Diagnosis (1) Hyponatremia: Status: Acute Code(s): E87.1 - Hypo-osmolality and hyponatremia (2) EMILY (acute kidney injury): Status: Acute Code(s): N17.9 - Acute kidney failure, unspecified (3) DKA (diabetic ketoacidoses): Status: Acute Code(s): E11.10 - Type 2 diabetes mellitus with ketoacidosis without coma (4) Diabetes mellitus, new onset: Status: Acute Code(s): E11.9 - Type 2 diabetes mellitus without complications (5) HTN (hypertension): Status: Chronic Code(s): I10 - Essential (primary) hypertension (6) Hypokalemia: Status: Acute Code(s): E87.6 - Hypokalemia (7) Dehydration: Status: Acute Code(s): E86.0 - Dehydration Medications at Discharge Home Medications insulin glargine-yfgn 100 unit/mL (3 mL) subcutaneous pen 50 unit (0.5 mL) subcut DAILY #15 mL 07/27/24 insulin lispro 100 unit/mL subcutaneous pen (Humalog KwikPen (U-100) Insulin) 15 unit (0.15 mL) subcut TIDAC #15 mL 07/27/24 lisinopril 10 mg tablet 30 mg (3 x 10 mg) PO DAILY #30 tabs 07/27/24 pen needle, diabetic 30 gauge x 5/16 (Pen Needle) #1,200 ea 07/27/24 Hospital Course Operations None Procedures EKG and - (Chest x-ray/CT abdomen pelvis) Summary of Care Provided Minutes Spent on Discharge: 40 Hospital Course: Mr. Herr is a 39-year-old white male who presented to the emergency department at [facility] on 07/25/2024 with a chief complaint of progressive fatigue and weight loss. 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 He denies drinking sugary beverages but drinks diet soda on a regular basis. He reported that he had been feeling dehydrated and been drinking a lot more than typical and having increased urination. Vital signs on presentation showed a temperature of 96.8, heart rate 113, respiratory rate was 16, blood pressure was 169/117 and pulse ox was 100% room air. CBC showed a leukocytosis white count of 15.8. Chemistry panel was markedly abnormal having hyponatremia natremia with a sodium of 128, serum bicarb of 7.2, anion gap was 27, serum creatinine is 1.7 and glucose was 416. Given this a VBG was obtained and his pH was found to be 7.02. He was diagnosed with diabetic ketoacidosis placed on an insulin drip as well as aggressive IV fluids and admitted to the ICU. Hemoglobin A1c was obtained and found to be 13.3. This is a new diagnosis of diabetes for the patient. He was eventually able to be weaned off the insulin drip and transition to subcu insulin. Dietitian was consulted and he was instructed on injection and blood sugar testing by nursing staff. He demonstrated competency in both the skills prior to discharge. His blood pressure was also noted to be elevated throughout his hospital stay so we did add lisinopril 30 mg daily for renal protection and blood pressure control. With regards to his blood sugar he was discharged on 50 units of Lantus daily to be taken in the morning and 15 units 3 times daily of Humalog. He was advised that if he is not eating a meal he should not take his Humalog and if he is having any nausea vomiting or not able to eat throughout the day he should decrease his Lantus by 50% and give himself 25 units. He had several significant electrolyte abnormalities during his hospital stay that were repleted and normalized prior to discharge. I have advised him to follow-up with Dr. Anthony Felix from endocrinology after discharge and information was given he was advised to call either later today or on Tuesday to set up an appointment to be seen within the next month. Prescriptions for his insulin and lisinopril were sent to local pharmacy at the time of discharge. We did discuss side effects of lisinopril to include dry cough and most severe but uncommon side effect of angioedema. He was instructed to discontinue the lisinopril and come the emergency department if he were to develop angioedema. Patient was discharged home in stable condition on 07/27/2024. Discharge diagnoses: DKA EMILY Hypokalemia Hypophosphatemia New onset diabetes Hypertension Hyponatremia Obesity Physical Exam Narrative Patient states overall he is feeling much better. Still some fatigue but clinically much improved Const alert, oriented x3, no apparent distress, no limitations and well nourished; Negative for average body habitus Constitutional Narrative: Obese, middle-aged, white male, sitting up in bed, appears comfortable, nontoxic, dietitian at bedside General Appearance: cooperative, comfortable, well kempt and well developed Exam Limitations: no limitations Nutritional Appearance: obese HEENT normocephalic, head/scalp atraumatic, hearing grossly normal bilaterally and moist oral mucous membranes HEENT Narrative: Mallampati 3, no thrush, dentition is good Eyes EOMs intact bilaterally and conjunctivae normal Eyes Narrative: No icterus. Neck no lymphadenopathy Neck Narrative: Trachea midline, no thyroid lodgment Resp normal respiratory effort, no retractions, no use of accessory muscles and clear to auscultation bilaterally Auscultation: Negative for rales, rhonchi or wheezes Cardio regular rate, regular rhythm, S1 normal heart sound, S2 normal heart sound, no murmurs, no rub, no gallops and no clicks GI normal to inspection, nondistended, normoactive bowel sounds, soft to palpation and non-tender Extremity no clubbing, cyanosis or edema Extremity Narrative: 2+ pedal and radial pulses Skin skin turgor normal, no jaundice, no petechiae and no mottling Neuro oriented x3, moves all extremities and no focal motor deficits Speech: speech normal Psych affect normal Psych Narrative: Pleasant, interacts appropriately Weight / BMI Weight Weight: 102.4 kg Body Mass Index (BMI) 30.5 ABG / Lab / Microbiology Data 07/27/24 08:07 07/27/24 04:59 Laboratory: Laboratory Results - last 24 hr 07/26/24 11:49: POC Glucose 312 H 07/26/24 16:05: Sodium 130 L, Potassium 3.4, Chloride Direct 104, Carbon Dioxide 15.4 L, Anion Gap 10, BUN 15, Creatinine 1.3, Estim Creat Clear Calc 96.09, Est GFR (MDRD) Non-Af 73, BUN/Creatinine Ratio 11.4, Glucose 437 H, Calcium 9.1 07/26/24 16:23: POC Glucose 361 H 07/26/24 20:58: POC Glucose 319 H 07/27/24 04:00: Phosphorus 2.0 L 07/27/24 04:59: Sodium 134, Potassium 2.8 L, Chloride Direct 104, Carbon Dioxide 17.1 L, Anion Gap 13, BUN 11, Creatinine 1.02, Estim Creat Clear Calc 122.75, Est GFR (MDRD) Non-Af 97, BUN/Creatinine Ratio 10.6, Glucose 298 H, Calcium 9.1, Magnesium 2.1, Total Bilirubin 0.39, AST 14, ALT 13, Alkaline Phosphatase 61, Total Protein 5.6 L, Albumin 3.4 L, Globulin 2.2, Albumin/Globulin Ratio 1.5, TSH 4.420 H 07/27/24 08:07: WBC 4.2 L, RBC 3.72 L, Hgb 11.6 L, Hct 33.3 L, MCV 89.5 D, MCH 31.2, MCHC 34.8 D, RDW Std Deviation 44.3 H, RDW Coeff of Kelle 13.7, Plt Count 187, MPV 10.0, POC Glucose 271 H D/C Instructions Discharge Diet: 2000 Calorie Control Diet Discharge Activity: Return to Normal Activity Return to work on: 07/30/24 May resume sexual activity in: No Restrictions DC O2, CPAP, BIPAP Needs Home O2 Discharge instructions: No Meaningful Use Info Meaningful Use Meaningful Use Diagnoses (Choose all that apply): None applicable Ischemic Stroke Statin Dosing Therapy Reference: STATIN DOSE THERAPY REFERENCE: * Patients > 75 years receive moderate or high dose statin therapy. * Patients 75 years or YOUNGER should receive HIGH intensity statin dose unless contraindicated. You will be required to document reason for non-treatment if statin daily dose does not meet guidelines. HIGH DOSE STATIN THERAPY DAILY Atorvastatin > than or = to 40 mg Rosuvastatin > than or = to 20 mg Amlodipine + Atorvastatin > than or = to 2.5/40 mg Ezetimibe + Simvastatin 10/80 mg Simvastatin 80mg Discharge Plan Admission Admit Date/Time: 07/25/24 15:57 Primary Reason for Your Visit: Diabetic ketoacidosis Attending Provider: Ly Fairbanks Primary Care Provider: Care Physician,No Primary Consulting Providers: Jeromy Early Instructions Additional Instructions / Restrictions: 1. Please check your blood sugars 4 times a day. 1 in the morning when you get up and 1 time before each meal and write these down and take them to your first appointment with Dr. Felix 2. If you end up not being able to eat and do not take your Humalog insulin 3. If you have nausea or vomiting you will not be taking your Humalog and decrease your basal insulin from 50 units to 25 units 4. Please establish with a primary care physician as we really need to have a follow-up basic metabolic profile be done in the next 2 to 3 weeks 5. Please try to adhere to the diet recommendations by the dietitian Discharge Orders/Prescriptions Prescriptions: New insulin glargine-yfgn 100 unit/mL (3 mL) Insulin Pen 50 unit subcut DAILY Qty: 15 2RF insulin lispro [Humalog KwikPen Insulin] 100 unit/mL Insulin Pen 15 unit subcut TIDAC Qty: 15 2RF lisinopril 10 mg Tablet 30 mg PO DAILY Qty: 30 1RF (DME) pen needle, diabetic [Pen Needle] 30 gauge x 5/16 needle See Rx Instructions .Route Qty: 1200 1RF Rx Instructions: As directed Referrals / Follow Up: Anthony Felix MD [Med Staff - Courtesy Staff] - See Referral Note (Call later today or Tuesday to set up an appointment to be seen within the next 4 weeks) Care Physician,No Primary [Primary Care Provider] - NOT,DEFINED [Non-Staff] - Anthony Felix MD [[facility]] - Disposition Disposition (needs filled in before D/C Order can be placed): Home, Self Care Charges/Coding Visit Charges Inpatient E&M: 38794 Disch Hosp >30min
[2024-07-27 11:53] LABS: Bedside Glucose 301 mg/dL (74-106)
[2024-07-27 14:32] VITALS: BP 150/92; PULSE 78; RESP 16; TEMP 36.4; O2SAT 99
== END 2024-07-27 15:18 | disposition home or self-care (01) | DRG 638 ==
LOC: ED 15:26 → ICU 16:04
PROVIDERS: Internal Medicine; Emergency Provider Emergency Medicine; Visit Provider Internal Medicine
DX: E11.10 Type 2 diabetes mellitus with ketoacidosis without coma (principal); N17.9 Acute kidney failure, unspecified; E83.39 Other disorders of phosphorus metabolism; I10 Essential (primary) hypertension; E66.9 Obesity, unspecified; E86.0 Dehydration; E87.6 Hypokalemia; F17.290 Nicotine dependence, other tobacco product, uncomplicated; Z68.30 Body mass index [BMI] 30.0-30.9, adult
CPT/HCPCS: 71046; 74177; 80048; 80053; 81001; 82009; 82803; 82962; 83036; 83690; 83735; 84100; 84439; 84443; 84481; 84484; 85025; 85027; 93005; 97802; 99284; 99406; Q9967; A4216

== ENCOUNTER → 2024-07-30 | Outpatient (CLI) | payer OTHER, SELFPAY ==
[2024-07-30 13:26] LABS: Absolute Lymphocyte Count 1.26 X10^3/uL (0.83-4.51); Absolute Neutrophil Count 5.4 X10^3/uL (2.0-7.7); Basophil# 0.04 X10^3/uL; Basophil% 0.5 % (0-1); Eosinophil# 0.03 X10^3/uL; Eosinophils% 0.4 % (0-5); Hematocrit 40.3 % (40-54); Lymphocyte # 1.26 X10^3/ul (0.83-4.51); Mean Corp Hgb Conc 34.7 g/dL (32-36); Mean Corpuscular Hgb 31.2 pg (27.0-32.0); Mean Corpuscular Volume 89.8 fL (80-94); Mean Platelet Vol. 10.4 fl (6.2-12.0); Monocyte# 0.68 X10^3/uL; Monocyte% 9.2 % (0-10); NRBC Flagged by Analyzer 0 % (0-5); Neutrophil # 5.38 X10^3/uL (2.7-7.7); Neutrophil % 72.5 % (47-70); Platelet Count 256 K/mm3 (150-450); RBC Distribution Width CV 13.5 % (11.6-14.6); RBC Distribution Width SD 43.9 fl (35.1-43.9); Red Blood Count 4.49 M/mm3 (4.6-6.2); White Blood Count 7.4 K/mm3 (4.4-11.0)
[2024-07-30 14:12] LABS: Cholesterol 204 mg/dL (<=200); High Density Lipoprotein 42 mg/dL; Low Density Lipoprotein Calc. 136 mg/dL; Triglycerides 133 mg/dL; Very Low Density Lipoprotein 27 mg/dL (5-40); cholesterol:hdl ratio screen 4.87
[2024-07-30 15:14] LABS: ALB/GLOB Ratio 1.6 RATIO (0.9-2.4); AST(SGOT) 30 U/L (<=37); Alanine Aminotransfer ALT/SGPT 32 U/L (<=46); Albumin, Serum 4.1 g/dL (3.5-5.0); Alkaline Phosphatase 69 U/L (40-129); Anion Gap 13 (5-15); BUN 15 mg/dL (4-19); BUN/Creat Ratio 14.8 RATIO (10-20); Carbon Dioxide 29.1 mmol/L (22.0-29.0); Chloride 94 mmol/L (96-108); Creatinine, Serum 1.01 mg/dL (0.70-1.20); EST Glomerular Filtration Rate 98 (>60); Globulin 2.6 g/dL (2.2-4.2); Glucose 311 mg/dL (70-99); Potassium 2.8 mmol/L (3.3-5.1); Protein, Total 6.7 g/dL (5.9-8.4); Sodium Level 136 mmol/L (133-145); Total Bilirubin 0.25 mg/dL (0.00-1.30)
== END | disposition home or self-care (01) ==
DX: E11.9 Type 2 diabetes mellitus without complications (principal); Z13.220 Encounter for screening for lipoid disorders
CPT/HCPCS: 36415; 80053; 80061; 85025

== ENCOUNTER → 2024-08-07 | Outpatient (CLI) | payer OTHER, SELFPAY ==
[2024-08-07 18:09] LABS: Anion Gap 9 (5-15); BUN 6 mg/dL (4-19); BUN/Creat Ratio 5.4 RATIO (10-20); Calcium,Total 9.4 mg/dL (7.6-11.0); Carbon Dioxide 26.7 mmol/L (21.0-32.0); Chloride 106 mmol/L (98-108); Creatinine, Serum 1.07 mg/dL (0.70-1.20); EST Glomerular Filtration Rate 92 (>60); Glucose 141 mg/dL (70-99); Potassium 3.9 mmol/L (3.3-5.1); Sodium Level 142 mmol/L (133-145)
== END | disposition home or self-care (01) ==
LOC: VSLAB 14:32
DX: E11.9 Type 2 diabetes mellitus without complications (principal)
CPT/HCPCS: 36415; 80048

== ENCOUNTER → 2024-08-30 | Outpatient (CLI) | payer OTHER, SELFPAY ==
[2024-08-30 18:21] LABS: Glucose 97 mg/dL (70-99)
[2024-09-01 11:09] LABS: C-Peptide 2.1 ng/mL (1.1-4.4)
== END | disposition home or self-care (01) ==
LOC: LAB 16:25
PROVIDERS: Referring Provider Nurse Practitioner Family; Visit Provider Nurse Practitioner Family
DX: R73.9 Hyperglycemia, unspecified (principal)
CPT/HCPCS: 36415; 82947; 84681

== ENCOUNTER → 2024-11-14 | Outpatient (CLI) | payer OTHER, SELFPAY ==
[2024-11-14 17:23] LABS: Anion Gap 12 (5-15); BUN 15 mg/dL (4-19); BUN/Creat Ratio 14.6 RATIO (10-20); Calcium,Total 9.5 mg/dL (7.6-11.0); Chloride 102 mmol/L (98-108); Creatinine, Serum 1.04 mg/dL (0.70-1.20); EST Glomerular Filtration Rate 95 (>60); Glucose 102 mg/dL (70-99); Sodium Level 136 mmol/L (133-145); T4 Total, Thyroxin 5.7 ug/dL (4.5-12.1)
[2024-11-16 14:08] LABS: Thyroglobulin Antibody < 1.0 IU/mL (0.0-0.9); Thyroid Peroxidase AB < 9 IU/mL (0-34)
== END | disposition home or self-care (01) ==
LOC: VSLAB 15:31
DX: E11.9 Type 2 diabetes mellitus without complications (principal); R94.6 Abnormal results of thyroid function studies
CPT/HCPCS: 36415; 80048; 84436; 84439; 84443; 86376; 86800

== ENCOUNTER → 2025-01-01 | Outpatient (CLI) | payer OTHER, SELFPAY ==
--- NOTE | 2025-01-01 14:48 | VDLE_ITS ---
Reason For Study Reason For Study: Left leg pain Procedure LEFT This is a venous duplex using B-mode, color flow and GSV is normal. spectral Doppler. CFV is compressible, spontaneous, phasic, competent, Exam performed in department. and demonstrates normal augmentation. 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 and demonstrates normal augmentation. POP V is compressible, spontaneous, phasic, competent and demonstrates normal augmentation. T/P Trunk is compressible. PTV is compressible. LT PerV is compressible. VL/Venous Duplex US, Unilateral Interpretation Summary Deep veins of the left lower extremity are patent and compressible segmentally. There is no evidence of left lower extremity deep vein thrombosis. The left great saphenous vein appears patent an d compressible segmentally. Ordering Physician: Soraida Rubio Referring Physician: Daniel Loomis Performed By: Veronica Wyatt RVT
== END | disposition home or self-care (01) ==
LOC: CVS 14:40
PROVIDERS: Referring Provider Nurse Practitioner Family; Visit Provider Nurse Practitioner Family
DX: M79.605 Pain in left leg (principal); R09.89 Other specified symptoms and signs involving the circulatory and respiratory systems
CPT/HCPCS: 93971